=== PATIENT | male | born 1965 | race Caucasian/White ===

== ENCOUNTER 2020-09-23 06:48 | Day surgery (SDC) | payer MEDICAID ==
[2020-09-23] VITALS (13 sets, daily range): BP systolic 119–143; BP diastolic 75–96
[~2020-09-23] VITALS: Ht 180.3 cm; Wt 95.0 kg
[2020-09-23] MEDS ORDERED: LISI40TA13 PO (07:15)
[2020-09-23] MEDS ORDERED: OMEP40CA13 PO (07:15)
[2020-09-23] MEDS ORDERED: METF500T PO (07:15)
[2020-09-23] MEDS ORDERED: INSU100I31 SQ (07:15)
[2020-09-23] MEDS ORDERED: ATOR40TA PO (07:15)
[2020-09-23] MEDS ORDERED: ASPI-1265 PO (07:15)
[2020-09-23 07:36] LABS: BASOPHILS # (AUTO) 0.1 X10'3 (0-0.2); BASOPHILS % (AUTO) 0.9 % (0-1); EOSINOPHILS # (AUTO) 0.1 X10'3 (0-0.9); EOSINOPHILS % (AUTO) 1.8 % (0-6); HEMATOCRIT 43.1 % (42.0-52.0); HEMOGLOBIN 15.2 g/dl (14.0-17.9); LYMPHOCYTES # (AUTO) 2.1 X10'3 (1.1-4.8); MEAN CORPUSCULAR HEMOGLOBIN 31.8 PG (27.0-31.0); MEAN CORPUSCULAR HGB CONC 35.3 g/dL (33.0-36.5); MEAN CORPUSCULAR VOLUME 89.9 FL (78-98); MEAN PLATELET VOLUME 8.1 FL (7.4-10.4); MONOCYTES # (AUTO) 0.8 X10'3 (0-0.9); MONOCYTES % (AUTO) 10.6 % (2-12); NEUTROPHILS # (AUTO) 4.1 X10'3 (1.8-7.7); NEUTROPHILS % (AUTO) 56.7 % (42-75); PLATELET COUNT 238 X10'3 (140-440); WHITE BLOOD COUNT 7.2 X10'3 (4.5-11.0)
[2020-09-23] MEDS ORDERED: insulin Lispro (HumaLOG) vial - multi-dose SQ SCH (07:45)
[2020-09-23 07:48] LABS: PARTIAL THROMBOPLASTIN TIME 26 SECONDS (22-32)
[2020-09-23] MEDS ORDERED: LORazepam 0.5 MG tablet PO PRN (07:50)
[2020-09-23] MEDS ORDERED: normal saline 1,000 ML IV SCH (07:50)
[2020-09-23] MEDS ORDERED: nitroGLYCERIN 0.4mg SUBLingual tab SL PRN (07:50)
[2020-09-23] MEDS ORDERED: diphenhydrAMINE 25mg capsule PO PRN (07:50)
[2020-09-23 08:08] LABS: ALBUMIN 3.4 G/DL (3.4-5.0); ANION GAP 9 (8-16); BLOOD UREA NITROGEN 18 MG/DL (7-18); CALCIUM 8.8 MG/DL (8.5-10.1); CHLORIDE 101 MMOL/L (99-107); CREATININE 0.62 MG/DL (0.60-1.10); GLUCOSE 296 MG/DL (70-104); POTASSIUM 3.2 MMOL/L (3.5-5.1); SODIUM 139 MMOL/L (135-145); TOTAL CARBON DIOXIDE 28.6 MMOL/L (24-32); eGFR > 90 ML/MIN
[2020-09-23] MEDS ORDERED: iohexol 350 MG/ML 50ML vial IV ONE (09:08)
[2020-09-23] MEDS ORDERED: iohexol 350MG/ML 100ml bottle IV ONE (09:09)
[2020-09-23] MEDS ORDERED: midazolam 1 mg/ML 2ml injection ONE (09:09)
[2020-09-23] MEDS ORDERED: fentaNYL/PF 50MCG/1 ML 2ML syringe ONE (09:09)
[2020-09-23] MEDS ORDERED: LIDOcaine 1% (10mg/ml)w/preservative injection 20ml MDV ONE (09:10)
[2020-09-23] MEDS ORDERED: OXAZEpam 15mg capsule PO PRN (10:30)
[2020-09-23] MEDS ORDERED: ondansetron/PF 4mg/2ml inj IV PRN (10:30)
[2020-09-23] MEDS ORDERED: HYDROcodone/acetaminophen 5mg/325mg tablet PO PRN (10:30)
[2020-09-23] MEDS ORDERED: normal saline 1000ml 1,000 ML IV SCH (10:30)
[2020-09-23] MEDS ORDERED: HYDROcodone/acetaminophen 10/325mg tab PO PRN (10:30)
[2020-09-23] MEDS ORDERED: proCHLORperazine 10 MG/2 ml inj IV PRN (10:30)
--- NOTE | 2020-09-23 15:55 | NUR ---
Patient in room . I have received report from Shaniqua GROSS and had the opportunity to ask questions and assume patient care.
--- NOTE | 2020-09-23 15:56 | NUR ---
Pt laying supine with handheld computer in hand, pt has his at the bedside. He is actively eating a lunch tray and drinking fluid orally. Rt groin stable, DRSG CD&I, no s/s of bleeding or infection. VS stable as charted. Will continue to monitor.
[2020-09-23] MEDS ORDERED: insulin glargine (Lantus) pen - multi-dose SQ SCH (21:00)
== END 2020-09-23 17:00 | disposition home or self-care (01) ==
LOC: SSTAY O 06:48
PROVIDERS: ATTEND Internal Medicine Cardiovascular Disease
DX: R94.39 Abnormal result of other cardiovascular function study (principal); I25.10 Atherosclerotic heart disease of native coronary artery without angina pectoris; I10 Essential (primary) hypertension; E83.52 Hypercalcemia; E11.9 Type 2 diabetes mellitus without complications; E78.5 Hyperlipidemia, unspecified; Z87.891 Personal history of nicotine dependence; Z79.4 Long term (current) use of insulin; Z79.899 Other long term (current) drug therapy; Z79.82 Long term (current) use of aspirin
CPT/HCPCS: 36415; 71046; 80048; 83880; 85025; 85610; 85730; 93458; 99152; C1760; C1769; J1644; J1815; J2001; J2250; J3010; J7030; Q0163; Q9967; A6258